=== PATIENT | female | born 2000 | race Hispanic/Latino ===

== ENCOUNTER 2025-04-07 02:06 | Emergency (ER) | payer BC ==
[2025-04-07 03:28] LABS: CAUTI Indications for Culture Dysuria,urgency,freq; Glucose, Urine (Dipstick) Normal (Negative); Leukocyte Negative Leu/uL (Negative); Protein, Urine (Dipstick) Negative (Neg-Trace); RBC/HPF 0-3 HPF (0-3); Specific Gravity, Urine 1.024 (1.002-1.036); WBC/HPF 0-3 HPF (0-3)
[2025-04-07 03:30] LABS: Bacteria/HPF 1+ HPF (None Seen); Urine Culture Reflex No No
[2025-04-07 03:33] LABS: #Basophils 0.03 10x3/uL (0.0-0.2); #Eosinophils 0.05 10x3/uL (0.0-0.7); #Monocytes 0.39 10x3/uL (0.11-0.59); #Neutrophils 7.58 10x3/uL (1.40-6.50); %Basophils 0.3 % (0.0-1.0); %Eosinophils 0.5 % (0.0-10.0); %Lymphocytes 14.3 % (21.0-51.0); %Monocytes 4.1 % (0.0-10.0); %Neutrophils 80.0 % (42.0-75.0); Hematocrit 36.2 % (36.0-47.0); Hemoglobin 12.5 g/dL (12.0-16.0); Mean Corpuscular Hemoglobin 29.5 pg (27.0-31.0); Mean Corpuscular Volume 85.4 fL (78.0-98.0); Platelet Count 214 10x3/uL (130-400); Red Blood Cell (RBC) Count 4.24 mill/uL (4.20-5.40); White Blood Cell (WBC) Count 9.49 10x3/uL (4.8-10.8)
[2025-04-07 03:54] LABS: ALT (SGPT) 10 U/L (Less than 34); AST (SGOT) 21 U/L (11-34); Albumin 3.3 g/dL (3.1-4.5); Alkaline Phosphatase 76 U/L (40-110); Anion Gap 14 mmol/L (10-20); BUN (Urea Nitrogen) 9 mg/dL (7.0-18.7); Bilirubin, Total 0.3 mg/dL (0.3-1.2); Calc. Creatinine Clearance 0 mL/min (70-130); Calcium 8.5 mg/dL (7.8-10.44); Carbon Dioxide 22 mmol/L (22-29); Chloride 106 mmol/L (98-107); Globulin 3.8 g/dL (2.4-3.5); Glucose 105 mg/dL (70-105); Lipase 37 U/L (8-78); Potassium 3.7 mmol/L (3.5-5.1); Sodium 138 mmol/L (136-145)
[2025-04-07 03:55] LABS: Troponin I Less than 0.010 ng/mL (< 0.028)
[2025-04-07] MEDS ORDERED: Ondansetron PF 4 MG/2 ML Vial ONE (05:11)
[2025-04-07] MEDS ORDERED: Famotidine/PF 20 mg/2ml Vial ONE (05:11)
== END 2025-04-07 06:16 ==
LOC: ERS 02:06
DX: O99.612 Diseases of the digestive system complicating pregnancy, second trimester (principal); K80.20 Calculus of gallbladder without cholecystitis without obstruction; Z3A.24 24 weeks gestation of pregnancy; Z55.6 Problems related to health literacy
CPT/HCPCS: 36415; 76705; 76815; 80053; 81001; 83690; 84484; 85025; 93005; 96361; 96374; 96375; J1308; J2270; J2405